=== PATIENT | female | born 1935 | race Caucasian/White ===

== ENCOUNTER 2019-01-24 13:19 | Outpatient (CLI) | payer MEDICARE, OTHER ==
[2019-01-24] MEDS ORDERED: PREG25PO PO (15:02)
[2019-01-24] MEDS ORDERED: MULT1TAB60 PO (15:02)
[2019-01-24] MEDS ORDERED: OMEG-19 PO (15:02)
[2019-01-24] MEDS ORDERED: OMEP40CA6 PO (15:02)
[2019-01-24] MEDS ORDERED: AMLO-150 PO (15:02)
[2019-01-24] MEDS ORDERED: LEVO50TA5 PO (15:02)
[2019-01-24] MEDS ORDERED: CHOL2000 PO (15:02)
[2019-01-24] MEDS ORDERED: ASPI-496 PO (15:02)
[2019-01-24] MEDS ORDERED: IRON18TA PO (15:02)
[2019-01-24] MEDS ORDERED: CELE200C PO (15:02)
[2019-01-24] MEDS ORDERED: METO50TA82 PO (15:02)
[2019-01-24] MEDS ORDERED: LOSA50TA14 PO (15:02)
[2019-01-24] MEDS ORDERED: PRAS1TAB3 PO (15:02)
== END 2019-01-24 23:59 | disposition home or self-care (01) ==
LOC: STAR 13:19
PROVIDERS: ATTEND Internal Medicine
DX: Z01.818 Encounter for other preprocedural examination (principal)
CPT/HCPCS: 93005

== ENCOUNTER 2019-01-27 10:07 | Day surgery (SDC) | payer MEDICARE, OTHER ==
[~2019-01-27] VITALS: Ht 152.4 cm; Wt 56.6 kg
[~2019-01-27 10:07] MED LIST: AMLO-150 PO; ASPI-496 PO; CELE200C PO; CHOL2000 PO; IRON18TA PO; LEVO50TA5 PO; LOSA50TA14 PO; METO50TA82 PO; MULT1TAB60 PO; OMEG-19 PO; OMEP40CA6 PO; PRAS1TAB3 PO; PREG25PO PO
[2019-01-27] MEDS ORDERED: LACTATED RINGERS 1,000 ML IV SCH (10:32)
[2019-01-27 11:08] VITALS: BP 144/65
[2019-01-27] MEDS ORDERED: FENTANYL PF 100 MCG/2ML ONE (11:47)
[2019-01-27] MEDS ORDERED: MIDAZOLAM 1 MG/ML, 2ML ONE (11:47)
[2019-01-27] MEDS ORDERED: PROPOFOL 10 MG/ML, 20ML ONE (12:20)
[2019-01-27] MEDS ORDERED: hydrALAzine 20 MG/ML, 1ML IV PRN (13:00)
[2019-01-27] MEDS ORDERED: MEPERIDINE/PF 25MG/0.5ML IVPush PRN (13:00)
[2019-01-27] MEDS ORDERED: FENTANYL PF 100 MCG/2ML IV PRN (13:00)
[2019-01-27] MEDS ORDERED: OXYcodone 5 MG/5 ML ORAL.SOL UDC PO PRN (13:00)
[2019-01-27] MEDS ORDERED: ONDANSETRON 2MG/ML, 2ML IV PRN (13:00)
[2019-01-27] MEDS ORDERED: ACETAMINOPHEN 325 MG TABLET PO PRN (13:00)
== END 2019-01-27 15:15 | disposition home or self-care (01) ==
LOC: OUT 10:07
PROVIDERS: ATTEND Internal Medicine
DX: K57.30 Diverticulosis of large intestine without perforation or abscess without bleeding (principal); K63.89 Other specified diseases of intestine; E03.9 Hypothyroidism, unspecified; E11.9 Type 2 diabetes mellitus without complications; I10 Essential (primary) hypertension; Z72.89 Other problems related to lifestyle; Z88.0 Allergy status to penicillin; Z88.8 Allergy status to other drugs, medicaments and biological substances
CPT/HCPCS: 45378; J2250; J2704; J3010; J7120

== ENCOUNTER 2019-08-19 11:24 | Emergency (ER) | payer MEDICARE, OTHER ==
[~2019-08-19] VITALS: Ht 160 cm; Wt 55.9 kg
[~2019-08-19 11:24] MED LIST changes: +OMEP40CA42 PO; -OMEP40CA6 PO
[2019-08-19 11:31] VITALS: BP 173/83
[2019-08-19 12:15] LABS: BASOPHILS # (AUTO) 0.02 x10^3/uL (0-0.1); BASOPHILS % (AUTO) 1 % (0-1); EOSINOPHILS # (AUTO) 0.19 x10^3/uL (0-0.4); EOSINOPHILS % (AUTO) 4 % (1-7); LYMPHOCYTES # (AUTO) 0.83 x10^3/uL (1-3.4); LYMPHOCYTES % (AUTO) 17 % (22-44); MD NO; MEAN CORPUSCULAR HEMOGLOBIN 31.7 pg (27.0-34.8); MEAN CORPUSCULAR HGB CONC 33.7 g/dL (32.4-35.8); MEAN CORPUSCULAR VOLUME 94.3 fL (80-100); MEAN PLATELET VOLUME 7.8 fL (7.4-10.4); MONOCYTES % (AUTO) 6 % (2-9); NEUTROPHILS # (AUTO) 3.71 x10^3/uL (1.8-6.8); NEUTROPHILS % (AUTO) 73 % (42-75); PLATELET COUNT 244 x10^3/uL (130-400); RED CELL DISTRIBUTION WIDTH 12.6 % (9.6-15.2)
[2019-08-19 12:26] LABS: ALANINE AMINOTRANSFERASE 18 U/L (12-78); ALBUMIN 3.5 g/dL (3.4-5.0); ANION GAP 7 mmol/L (5-15); CALCIUM 8.5 mg/dL (8.5-10.1); CHLORIDE 105 mmol/L (98-107); CREATININE 0.77 mg/dL (0.55-1.02)
[2019-08-19 12:30] LABS: ALKALINE PHOSPHATASE 93 U/L (45-117); BILIRUBIN,TOTAL 0.8 mg/dL (0.2-1.0); TOTAL PROTEIN 7.3 g/dL (6.4-8.2); TROPONIN I < 0.015 ng/mL (0.000-0.045)
--- NOTE | 2019-08-19 13:57 | NUR ---
Pt to room from lobby via wheelchair.
[2019-08-19 14:25] LABS: CULTURE INDICATED? YES; MICROSCOPIC INDICATED
== END 2019-08-19 16:16 | disposition home or self-care (01) ==
LOC: ED 15:14
DX: R53.1 Weakness (principal); R19.7 Diarrhea, unspecified; H53.9 Unspecified visual disturbance; R42 Dizziness and giddiness; K21.9 Gastro-esophageal reflux disease without esophagitis; E03.9 Hypothyroidism, unspecified; I10 Essential (primary) hypertension
CPT/HCPCS: 36415; 70450; 80053; 81001; 84443; 84484; 85025; 87086; 93005; 99284

== ENCOUNTER 2020-02-01 14:11 | Emergency (ER) | payer MEDICARE, OTHER ==
[~2020-02-01] VITALS: Ht 157.5 cm; Wt 59.6 kg
[~2020-02-01 14:11] MED LIST changes: +LOSA100T14 PO; +MULT-449 PO; -MULT1TAB60 PO; +THYR162. PO
--- NOTE | 2020-02-01 14:27 | NUR ---
PA IN LOBBY FOR ASSESMENT
[2020-02-01] MEDS ORDERED: THYR65TA2 PO (14:31)
[2020-02-01 15:34] LABS: BASOPHILS # (AUTO) 0.02 x10^3/uL (0-0.1); BASOPHILS % (AUTO) 0 % (0-1); EOSINOPHILS # (AUTO) 0.23 x10^3/uL (0-0.4); EOSINOPHILS % (AUTO) 5 % (1-7); LYMPHOCYTES % (AUTO) 16 % (22-44); MD NO; MEAN CORPUSCULAR HEMOGLOBIN 32.6 pg (27.0-34.8); MEAN CORPUSCULAR HGB CONC 34.1 g/dL (32.4-35.8); MEAN CORPUSCULAR VOLUME 95.5 fL (80-100); MEAN PLATELET VOLUME 7.6 fL (7.4-10.4); MONOCYTES % (AUTO) 6 % (2-9); NEUTROPHILS % (AUTO) 73 % (42-75); PLATELET COUNT 245 x10^3/uL (130-400); RED BLOOD COUNT 3.98 x10^6/uL (3.82-5.3); RED CELL DISTRIBUTION WIDTH 13.2 % (9.6-15.2)
[2020-02-01 15:38] LABS: ALBUMIN 3.6 g/dL (3.4-5.0); ANION GAP 3 mmol/L (5-15); CALCIUM 9.2 mg/dL (8.5-10.1); CHLORIDE 104 mmol/L (98-107); CREATININE 0.88 mg/dL (0.55-1.02)
[2020-02-01 15:42] LABS: TROPONIN I < 0.015 ng/mL (0.000-0.045)
--- NOTE | 2020-02-01 15:49 | NUR ---
MANAGER COMMUNICATION: PT STEADY UPON AMBULATION TO ROOM AT THIS TIME.
--- NOTE | 2020-02-01 15:56 | NUR ---
PT AMBULATED TO THE ROOM AND THEN TO THE BR W/ A STEADY GAIT. INSTRUCTED TO REMOVE CLOTHING AND CHANGE INTO GOWN. ACCOMPANIED BY FAMILY.
--- NOTE | 2020-02-01 16:27 | NUR ---
AT BEDSIDE FOR ED EVAL.
[2020-02-01 16:30] VITALS: BP 146/76
--- NOTE | 2020-02-01 16:45 | NUR ---
Patient given discharge instructions and they have confirmed that they understand the instructions. Patient ambulatory with steady gait.
== END 2020-02-01 16:46 | disposition home or self-care (01) ==
LOC: ED 16:28
DX: R00.1 Bradycardia, unspecified (principal); I10 Essential (primary) hypertension; K21.9 Gastro-esophageal reflux disease without esophagitis; E03.9 Hypothyroidism, unspecified; I21.9 Acute myocardial infarction, unspecified
CPT/HCPCS: 36415; 71046; 80048; 82040; 83880; 84484; 85025; 93005; 99285

== ENCOUNTER 2020-04-08 13:43 | Emergency (ER) | payer MEDICARE, OTHER ==
[~2020-04-08] VITALS: Ht 157.5 cm; Wt 58.3 kg
[~2020-04-08 13:43] MED LIST changes: +THYR65TA2 PO
[2020-04-08 13:46] VITALS: BP 159/48
[2020-04-08 14:35] LABS: ALBUMIN 3.7 g/dL (3.4-5.0); ANION GAP 6 mmol/L (5-15); CALCIUM 10.4 mg/dL (8.5-10.1); CHLORIDE 99 mmol/L (98-107)
[2020-04-08 14:41] LABS: ALANINE AMINOTRANSFERASE 22 U/L (12-78); ALKALINE PHOSPHATASE 103 U/L (45-117); BILIRUBIN,TOTAL 0.6 mg/dL (0.2-1.0); TOTAL PROTEIN 7.2 g/dL (6.4-8.2)
[2020-04-08 15:00] LABS: BASOPHILS # (AUTO) 0.01 x10^3/uL (0-0.1); BASOPHILS % (AUTO) 0 % (0-1); EOSINOPHILS # (AUTO) 0.12 x10^3/uL (0-0.4); EOSINOPHILS % (AUTO) 3 % (1-7); LYMPHOCYTES # (AUTO) 0.59 x10^3/uL (1-3.4); LYMPHOCYTES % (AUTO) 13 % (22-44); MD SCAN; MEAN CORPUSCULAR HGB CONC 33.4 g/dL (32.4-35.8); MEAN CORPUSCULAR VOLUME 96.1 fL (80-100); MEAN PLATELET VOLUME 7.4 fL (7.4-10.4); MONOCYTES # (AUTO) 0.26 x10^3/uL (0.2-0.8); MONOCYTES % (AUTO) 6 % (2-9); NEUTROPHILS # (AUTO) 3.49 x10^3/uL (1.8-6.8); NEUTROPHILS % (AUTO) 78 % (42-75); PLATELET COUNT 236 x10^3/uL (130-400); RED BLOOD COUNT 4.03 x10^6/uL (3.82-5.3); RED CELL DISTRIBUTION WIDTH 12.5 % (9.6-15.2)
[2020-04-08] MEDS ORDERED: CEFDINIR 300 MG CAPSULE ONE (15:41)
--- NOTE | 2020-04-08 15:47 | NUR ---
PT ATTEMPTED TO COLLECT A URINE SAMPLE WITH DAUGHTER'S HELP, UNSUCCESSFUL. PT DRESSED IN GOWN, ATTACHED TO MONITORS. PROVIDED WITH WATER. PT AND FAMILY AWARE OF NEED FOR A STRAIGHT CATH SAMPLE. DENY ANY FURTHER NEEDS, CALL LIGHT IN REACH.
[2020-04-08] MEDS ORDERED: CEFDINIR 300 MG CAPSULE PO ONE (16:00)
[2020-04-08 16:29] LABS: MICROSCOPIC AUTO
== END 2020-04-08 16:58 | disposition home or self-care (01) ==
LOC: ED 16:15
DX: N39.0 Urinary tract infection, site not specified (principal); R41.82 Altered mental status, unspecified; R94.31 Abnormal electrocardiogram [ECG] [EKG]; K21.9 Gastro-esophageal reflux disease without esophagitis; E03.9 Hypothyroidism, unspecified; Z87.891 Personal history of nicotine dependence
CPT/HCPCS: 36415; 80053; 81001; 85025; 87077; 87086; 87186; 93005; 99284

== ENCOUNTER 2020-05-23 12:55 | Emergency (ER) | payer MEDICARE, OTHER ==
[~2020-05-23] VITALS: Ht 160 cm; Wt 58.8 kg
[2020-05-23 14:24] LABS: BASOPHILS % (AUTO) 0 % (0-1); EOSINOPHILS % (AUTO) 3 % (1-7); LYMPHOCYTES % (AUTO) 11 % (22-44); MEAN CORPUSCULAR HEMOGLOBIN 32.4 pg (27.0-34.8); MEAN PLATELET VOLUME 7.7 fL (7.4-10.4); MONOCYTES % (AUTO) 5 % (2-9); NEUTROPHILS % (AUTO) 81 % (42-75); PLATELET COUNT 241 x10^3/uL (130-400); RED CELL DISTRIBUTION WIDTH 13.4 % (9.6-15.2)
[2020-05-23 14:31] LABS: ALBUMIN 3.5 g/dL (3.4-5.0); ANION GAP 7 mmol/L (5-15); CALCIUM 9.2 mg/dL (8.5-10.1); CHLORIDE 106 mmol/L (98-107)
[2020-05-23 14:36] LABS: ALANINE AMINOTRANSFERASE 19 U/L (12-78); ALKALINE PHOSPHATASE 103 U/L (45-117); BILIRUBIN,TOTAL 0.7 mg/dL (0.2-1.0); CREATININE 0.86 mg/dL (0.55-1.02); TOTAL PROTEIN 7.2 g/dL (6.4-8.2)
[2020-05-23 14:40] LABS: MD NO
--- NOTE | 2020-05-23 14:42 | NUR ---
SHIFT PRODUCTION SUPERVISOR NOTE: PT TO ROOM FROM LOBBY VIA .
--- NOTE | 2020-05-23 15:01 | NUR ---
PT IS BIB DAUGHTER. DAUGHTER STATES "MY MOM HAS DEMENTIA BUT SOMETHING IS DIFFERENT, SHE IS HAVING FALSE REALITIES AND HAS BEEN CONFUSED FOR 3 DAYS. USUALLY I AM RIGHT WHEN SHE HAS A UTI". PT DENIES ANY URINARY ISSUES INCLUDING URGENCY, FREQUENCY, OR BURNING.
[2020-05-23 15:43] LABS: MICROSCOPIC AUTO
[2020-05-23 16:26] VITALS: BP 130/75
== END 2020-05-23 16:29 | disposition home or self-care (01) ==
LOC: ED 16:00
DX: N30.00 Acute cystitis without hematuria (principal); R41.82 Altered mental status, unspecified; R53.83 Other fatigue; R53.1 Weakness; I10 Essential (primary) hypertension
CPT/HCPCS: 36415; 70450; 80053; 81001; 85025; 87077; 87086; 87186; 99284

== ENCOUNTER 2020-07-13 12:10 | Emergency (ER) | payer MEDICARE, OTHER ==
[~2020-07-13] VITALS: Ht 162.6 cm; Wt 58.3 kg
[2020-07-13] MEDS ORDERED: ASPIRIN 81 MG TABLET CHEW PO ONE (13:30)
[2020-07-13] MEDS ORDERED: ASPIRIN 81 MG TABLET CHEW ONE (13:44)
[2020-07-13 13:57] LABS: BASOPHILS % (AUTO) 1 % (0-1); EOSINOPHILS % (AUTO) 3 % (1-7); LYMPHOCYTES % (AUTO) 18 % (22-44); MEAN CORPUSCULAR HEMOGLOBIN 32.8 pg (27.0-34.8); MEAN PLATELET VOLUME 8.1 fL (7.4-10.4); MONOCYTES % (AUTO) 6 % (2-9); NEUTROPHILS % (AUTO) 72 % (42-75); PLATELET COUNT 194 x10^3/uL (130-400); RED BLOOD COUNT 3.75 x10^6/uL (3.82-5.3); RED CELL DISTRIBUTION WIDTH 11.9 % (9.6-15.2)
[2020-07-13 14:01] LABS: MD NO
[2020-07-13 14:08] LABS: ALBUMIN 3.5 g/dL (3.4-5.0); ANION GAP 6 mmol/L (5-15); CHLORIDE 105 mmol/L (98-107)
[2020-07-13 14:15] LABS: ALANINE AMINOTRANSFERASE 26 U/L (12-78); ALKALINE PHOSPHATASE 93 U/L (45-117); BILIRUBIN,TOTAL 0.5 mg/dL (0.2-1.0); CREATININE 0.74 mg/dL (0.55-1.02); FREE T4 (FREE THYROXINE) 1.42 ng/dL (0.76-1.46); TROPONIN I < 0.015 ng/mL (0.000-0.045)
[2020-07-13 15:10] LABS: MICROSCOPIC AUTO
[2020-07-13] MEDS ORDERED: CEFDINIR 300 MG CAPSULE ONE (15:47)
[2020-07-13] MEDS ORDERED: CEFDINIR 300 MG CAPSULE PO ONE (16:00)
[2020-07-13 16:03] VITALS: BP 147/60
== END 2020-07-13 16:05 | disposition home or self-care (01) ==
LOC: ED 12:45
DX: N39.0 Urinary tract infection, site not specified (principal); M54.6 Pain in thoracic spine; R42 Dizziness and giddiness; R07.89 Other chest pain; R51.9 Headache, unspecified; R94.31 Abnormal electrocardiogram [ECG] [EKG]; I10 Essential (primary) hypertension; E03.9 Hypothyroidism, unspecified; K21.9 Gastro-esophageal reflux disease without esophagitis; Z87.891 Personal history of nicotine dependence
CPT/HCPCS: 36415; 70450; 71045; 80053; 81001; 83605; 84439; 84443; 84484; 85025; 87077; 87086; 87186; 93005; 99285

== ENCOUNTER 2020-08-14 12:54 | Emergency (ER) | payer MEDICARE, OTHER ==
[~2020-08-14] VITALS: Ht 157.5 cm; Wt 55.0 kg
--- NOTE | 2020-08-14 13:20 | NUR ---
assumed care of pt. pt BIB daughter for increased confusion and aggression today pt found standing at the side of the gurney, daughter not in room. pt onto gurney without assist. pt in no resp. distress when daughter enters room, pt daughter states that pt has sat herself on the floor at home and that "she is being a brat today". pt very agiatated and daughter agitated as well. pt is vry hard of hearing and assessment is difficult as pt is uncooperative. 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 pt daughter states that pt has gotten up on a ladder 2 times today and that she has been argumentative and physically aggressive towards her. pt has made repeated requests for water. pt and juanre advised to be NPO at this time
--- NOTE | 2020-08-14 13:30 | NUR ---
Dr. Enriquez has been to bedside for eval. per daughter at bedside, pt is a daily drinker of ETOH, but has not had any yet today that she knows of. pt is on daily tx for chronic UTI and has had multiple UTI in the past. pt denies pain at this time and is uncooperative with monitoring equipment
--- NOTE | 2020-08-14 13:57 | NUR ---
CXR has been to bedside
[2020-08-14 14:00] LABS: BASOPHILS % (AUTO) 1 % (0-1); EOSINOPHILS % (AUTO) 2 % (1-7); LYMPHOCYTES % (AUTO) 12 % (22-44); MEAN CORPUSCULAR HEMOGLOBIN 32.4 pg (27.0-34.8); MEAN CORPUSCULAR HGB CONC 34.9 g/dL (32.4-35.8); MEAN PLATELET VOLUME 8.2 fL (7.4-10.4); MONOCYTES % (AUTO) 6 % (2-9); NEUTROPHILS % (AUTO) 79 % (42-75); PLATELET COUNT 213 x10^3/uL (130-400); RED CELL DISTRIBUTION WIDTH 12.7 % (9.6-15.2)
[2020-08-14 14:02] LABS: MD NO
[2020-08-14 14:06] LABS: ALANINE AMINOTRANSFERASE 31 U/L (12-78); ANION GAP 7 mmol/L (5-15); BILIRUBIN, DIRECT 0.2 mg/dL (0.1-0.2); CALCIUM 9.9 mg/dL (8.5-10.1); CHLORIDE 105 mmol/L (98-107); CREATININE 0.89 mg/dL (0.55-1.02)
[2020-08-14 14:10] LABS: ALKALINE PHOSPHATASE 102 U/L (45-117); BILIRUBIN,INDIRECT 0.6 mg/dL (0.0-2.0); BILIRUBIN,TOTAL 0.8 mg/dL (0.2-1.0); TROPONIN I < 0.015 ng/mL (0.000-0.045)
--- NOTE | 2020-08-14 14:20 | NUR ---
pt assisted to BR by daughter. urine sample collected and sent
--- NOTE | 2020-08-14 14:36 | NUR ---
pt positioning and lights dimmed for comfort
[2020-08-14 14:45] LABS: MICROSCOPIC INDICATED
[2020-08-14 14:55] VITALS: BP 138/56
--- NOTE | 2020-08-14 15:01 | NUR ---
pt has removed all of her monitoring equipment and has gotten dressed. pt states that she wants to leave. had pt return to her room
--- NOTE | 2020-08-14 15:31 | NUR ---
pt has left her room mulitple times. pt agiatated and uncooperative
--- NOTE | 2020-08-14 15:43 | NUR ---
pt to be D/C. awaiting daughter/caregiver back to bedside for D/C instructions
== END 2020-08-14 16:03 | disposition home or self-care (01) ==
LOC: ED 15:45
DX: R07.89 Other chest pain (principal)
CPT/HCPCS: 36415; 71045; 80048; 80076; 81001; 82040; 84484; 85025; 87086; 93005; 99285

== ENCOUNTER 2020-12-24 11:53 | Inpatient (IN) | payer MEDICARE, OTHER ==
[~2020-12-24] VITALS: Ht 160 cm; Wt 58.2 kg
--- NOTE | 2020-12-24 13:13 | NUR ---
FLAVORINGS COMPOUNDER: PT TO ROOM VIA WHEELCHAIR FROM LOBBY AT THIS TIME.
--- NOTE | 2020-12-24 13:16 | NUR ---
THIS IS A 85 YEAR OLD FEMALE WHO C/O PAIN WHILE GETTING INTO SHOWER AT 1100, PT FELL. WAS FOUND ON BACK. C/O SHOOTING PAIN INTO EYES, MIDDLE BACK PAIN. NO LOC ON SCENE. FEELING NAUSEA
[2020-12-24] MEDS ORDERED: SODIUM CHLORIDE FLUSH 10ML SYR IVF ONE (13:30)
--- NOTE | 2020-12-24 13:46 | NUR ---
HOB, BEDRAILS X 2. DAUGHTER AT BS
[2020-12-24 13:50] LABS: BASOPHILS % (AUTO) 0 % (0-1); EOSINOPHILS % (AUTO) 1 % (1-7); LYMPHOCYTES % (AUTO) 8 % (22-44); MEAN CORPUSCULAR HEMOGLOBIN 32.5 pg (27.0-34.8); MEAN CORPUSCULAR HGB CONC 35.2 g/dL (32.4-35.8); MEAN PLATELET VOLUME 7.9 fL (7.4-10.4); MONOCYTES % (AUTO) 4 % (2-9); NEUTROPHILS % (AUTO) 86 % (42-75); PLATELET COUNT 238 x10^3/uL (130-400); RED BLOOD COUNT 4.25 x10^6/uL (3.82-5.3); RED CELL DISTRIBUTION WIDTH 12.7 % (9.6-15.2)
[2020-12-24 13:59] LABS: ALANINE AMINOTRANSFERASE 23 U/L (12-78); ALBUMIN 4.1 g/dL (3.4-5.0); ANION GAP 6 mmol/L (5-15); CALCIUM 9.6 mg/dL (8.5-10.1); CHLORIDE 101 mmol/L (98-107); CREATININE 0.73 mg/dL (0.55-1.02); INTERNATIONAL NORMALIZED RATIO 1.01 (0.93-1.1); PROTHROMBIN TIME 10.8 Seconds (9.6-11.5)
[2020-12-24 14:02] LABS: ALKALINE PHOSPHATASE 111 U/L (45-117); BILIRUBIN,TOTAL 0.8 mg/dL (0.2-1.0); TROPONIN I < 0.015 ng/mL (0.000-0.045)
--- NOTE | 2020-12-24 14:10 | NUR ---
PT UP TO BSC WITH ONE ASSIST, GAIT SLOW AND UNSTEADY, DAUGHTER AT BS, BACK TO BED, REPOSITIONED FOR COMFORT
[2020-12-24 14:12] LABS: MD SCAN
[2020-12-24] MEDS ORDERED: OXYcodone IR 5MG TABLET PO PRN (15:00)
[2020-12-24] MEDS ORDERED: POLYETHYLENE GLYCOL 17 GM PACKET PO PRN (15:00)
[2020-12-24] MEDS ORDERED: hydrALAzine 20 MG/ML, 1ML IVPush PRN (15:00)
[2020-12-24] MEDS ORDERED: LABETALOL 5MG/ML, 20ML IVPush PRN (15:00)
[2020-12-24] MEDS ORDERED: LORazepam 2 MG/ML, 1ML IVPush PRN (15:00)
[2020-12-24] MEDS ORDERED: ENALAPRILAT 1.25 MG/ML, 2ML IVPush PRN (15:00)
[2020-12-24] MEDS ORDERED: ONDANSETRON 2MG/ML, 2ML IVPush PRN (15:00)
[2020-12-24] MEDS ORDERED: BISACODYL 10 MG SUPP PR PRN (15:00)
[2020-12-24 15:01] VITALS: BP 167/72
--- NOTE | 2020-12-24 15:12 | NUR ---
PT UP TO BSC, GAIT UNSTEADY WITH ONE ASSIST.
--- NOTE | 2020-12-24 15:12 | NUR ---
REPORT TO TYREE GARCÍA, PLAN OF CARE DISCUSSED
[2020-12-24] MEDS: ACETAMINOPHEN 325 MG TABLET PO PRN ×2 (16:16→20:37)
[2020-12-24] MEDS ORDERED: POTA20TA14 PO (17:09)
[2020-12-24] MEDS ORDERED: HYDR12.517 PO (17:09)
[2020-12-24] MEDS ORDERED: LEVO75TA5 PO (17:09)
[2020-12-24] MEDS: BEER 12 OZ CAN PO SCH (18:22)
[2020-12-24] MEDS: LOSARTAN 50MG TABLET PO SCH (20:40)
[2020-12-25 04:26] LABS: BASOPHILS % (AUTO) 0 % (0-1); EOSINOPHILS % (AUTO) 4 % (1-7); LYMPHOCYTES % (AUTO) 14 % (22-44); MEAN CORPUSCULAR HEMOGLOBIN 32.2 pg (27.0-34.8); MEAN CORPUSCULAR HGB CONC 34.9 g/dL (32.4-35.8); MONOCYTES % (AUTO) 8 % (2-9); NEUTROPHILS % (AUTO) 74 % (42-75); PLATELET COUNT 191 x10^3/uL (130-400); RED BLOOD COUNT 3.77 x10^6/uL (3.82-5.3)
[2020-12-25 04:28] LABS: MD NO
[2020-12-25 04:39] LABS: ALBUMIN 3.5 g/dL (3.4-5.0); ANION GAP 5 mmol/L (5-15); CALCIUM 9.9 mg/dL (8.5-10.1); CHLORIDE 104 mmol/L (98-107)
[2020-12-25 04:43] LABS: ALANINE AMINOTRANSFERASE 19 U/L (12-78); ALKALINE PHOSPHATASE 85 U/L (45-117); CREATININE 0.71 mg/dL (0.55-1.02); TOTAL PROTEIN 6.8 g/dL (6.4-8.2)
[2020-12-25] MEDS ORDERED: OMEPRAZOLE 20 MG CAPSULE.DR PO SCH (06:00)
[2020-12-25] MEDS: ACETAMINOPHEN 325 MG TABLET PO PRN (06:01)
[2020-12-25] MEDS: LOSARTAN 50MG TABLET PO SCH (07:52)
[2020-12-25] MEDS: BEER 12 OZ CAN PO SCH (08:13)
[2020-12-25] MEDS ORDERED: SENNA/DOCUSATE TABLET PO SCH (09:00)
[2020-12-25] MEDS ORDERED: AMLODIPINE 5 MG TABLET PO SCH (09:00)
== END 2020-12-25 11:20 | disposition home or self-care (01) | DRG 86 ==
LOC: ED 14:05 → EDIP 14:31 → ICU 15:22 → DCLOUNGE 12-25 11:09
PROVIDERS: ADMIT Internal Medicine; ATTEND Internal Medicine
DX: S06.5X0A Traumatic subdural hemorrhage without loss of consciousness, initial encounter (principal); S22.040A Wedge compression fracture of fourth thoracic vertebra, initial encounter for closed fracture; E87.1 Hypo-osmolality and hyponatremia; Y93.E1 Activity, personal bathing and showering; W18.2XXA Fall in (into) shower or empty bathtub, initial encounter; Y92.89 Other specified places as the place of occurrence of the external cause; Y99.8 Other external cause status; Z88.0 Allergy status to penicillin; Z88.8 Allergy status to other drugs, medicaments and biological substances; Z91.048 Other nonmedicinal substance allergy status; E03.9 Hypothyroidism, unspecified; F03.90 Unspecified dementia, unspecified severity, without behavioral disturbance, psychotic disturbance, mood disturbance, and anxiety; H91.90 Unspecified hearing loss, unspecified ear; I10 Essential (primary) hypertension; K21.9 Gastro-esophageal reflux disease without esophagitis; Z85.828 Personal history of other malignant neoplasm of skin; Z90.710 Acquired absence of both cervix and uterus; Z86.73 Personal history of transient ischemic attack (TIA), and cerebral infarction without residual deficits
CPT/HCPCS: 36415; 70450; 71045; 72125; 72128; 80053; 83605; 84443; 84484; 85025; 85610; 85730; 87081; 93005; 96374; G0378; J0360; J2060

== ENCOUNTER 2021-04-18 13:21 | Outpatient (CLI) | payer MEDICARE, OTHER ==
[~2021-04-18 13:21] MED LIST changes: +HYDR12.517 PO; +LEVO75TA5 PO; -OMEP40CA42 PO; +OMEP40CA8 PO; +POTA20TA14 PO
[2021-04-18 13:55] LABS: ALBUMIN 3.6 g/dL (3.4-5.0); ANION GAP 9 mmol/L (5-15); CALCIUM 9.3 mg/dL (8.5-10.1); CHLORIDE 99 mmol/L (98-107)
[2021-04-18 14:07] LABS: ALANINE AMINOTRANSFERASE 18 U/L (12-78); ALKALINE PHOSPHATASE 113 U/L (45-117); BILIRUBIN,TOTAL 0.7 mg/dL (0.2-1.0); CREATININE 0.77 mg/dL (0.55-1.02); FREE T4 (FREE THYROXINE) 0.99 ng/dL (0.76-1.46); TOTAL PROTEIN 7.5 g/dL (6.4-8.2)
== END 2021-04-18 23:59 | disposition home or self-care (01) ==
LOC: LAB 13:21
PROVIDERS: ATTEND Internal Medicine
DX: R74.8 Abnormal levels of other serum enzymes (principal); E03.9 Hypothyroidism, unspecified; E87.1 Hypo-osmolality and hyponatremia
CPT/HCPCS: 36415; 80053; 84439; 84443